=== PATIENT | male | born 1975 | race Caucasian/White ===

== ENCOUNTER → 2017-10-06 | Outpatient (CLI) | payer BC ==
--- NOTE | 2017-10-06 14:42 | DIAGNOSTIC IMAGING REPORT ---
R HEEL MIN 2 VIEWS HISTORY: 42 years-old Male PAIN IN UNSPECIFIED FOOT acute right heel pain status post injury COMPARISON: None available TECHNIQUE: 2 views of the right heel FINDINGS: Accessory ossicle is noted adjacent to the base of the fifth metatarsal. Additionally, there are punctate radiodensities seen along the plantar margin of the calcaneal cuboid articulation. There is no definite acute fracture or dislocation identified. Small plantar enthesophyte is noted involving the calcaneus. No opaque foreign body. IMPRESSION: Punctate radiodensities along the plantar margin of the cuboid calcaneal articulation suggests possible accessory ossicles or age-indeterminate avulsion injury. Correlate with point tenderness. The above report was generated using voice recognition software. It may contain grammatical, syntax or spelling errors. Electronically signed by: Triston Bob M.D. 10/06/2017 2:41 PM Dictated Date/Time: 10/06/2017 2:38 PM
== END | disposition home or self-care (01) ==
LOC: C.RAD1850 14:14
PROVIDERS: ATTEND Family Medicine
DX: M79.673 Pain in unspecified foot (principal); R93.7 Abnormal findings on diagnostic imaging of other parts of musculoskeletal system